=== PATIENT | male | born 1975 | race Caucasian/White ===

== ENCOUNTER 2017-01-27 12:36 | Emergency (ER) | payer MEDICAID ==
[2017-01-27] MEDS ORDERED: Ketorolac 60 MG/2 ML SDV IM ONE (13:01)
--- NOTE | 2017-01-27 13:07 | EDM.PDOC ---
ED HPI GENERAL MEDICAL PROBLEM - General Chief Complaint: Chest Pain Stated Complaint: CHEST PAIN Time Seen by Provider: 01/27/17 12:45 Source of Information: Reports: Patient History Limitations: Reports: No Limitations - History of Present Illness INITIAL COMMENTS - FREE TEXT/NARRATIVE: 41-year-old male, chronic anxiety and alcoholism had been sober for the past month but over the past 4 or 5 days he's been drinking daily but not heavily. He has not had anything to drink today, but he was walking down the driveway to get the garbage can when he experienced a very sharp sudden pain in the anterior left chest. It hurt to breathe but did not radiate. He got back into the house and sat down and it went away but when he tries to sit up he gets an increase in the sharp pain. He can also reproduce it with a deep breath. He does not feel short of breath. He had a stress test 2 years ago which was normal. After he experienced the pain he got on the Internet and realized he could be having a heart attack so came in. He appears anxious but comfortable. Initial EKG on arrival is normal. Onset: Sudden Location: Reports: Chest (Within the last hour) Quality: Reports: Sharp, Stabbing Severity: Moderate Improves with: Reports: Rest Worsens with: Reports: Breathing, Movement Associated Symptoms: Reports: No Other Symptoms Middle Chest Pain Score (Numeric/FACES): 6 - Related Data Allergies Allergy/AdvReac Type Severity Reaction Status Date / Time morphine Allergy Hives Verified 01/27/17 12:56 Home Meds: Home Meds Cyclobenzaprine [Flexeril] 5 mg PO TID 09/18/14 [History] Diazepam [Valium] 5 mg PO TID PRN 09/18/14 [History] traZODone 50 mg PO BEDTIME 09/18/14 [History] Atenolol 50 mg PO DAILY 11/04/14 [History] Diclofenac Sodium [Voltaren] 75 mg PO BID 11/04/14 [History] Lisinopril 10 mg PO DAILY 11/04/14 [History] Nicotine [Nicoderm CQ] 14 mg TRDERM DAILY 11/04/14 [History] buPROPion HCl [Wellbutrin SR] 150 mg PO BID 11/04/14 [History] ED ROS GENERAL - Review of Systems Review Of Systems: See Below Constitutional: Denies: Fever, Chills, Malaise HEENT: Reports: No Symptoms Respiratory: Reports: Pleuritic Chest Pain. Denies: Shortness of Breath Cardiovascular: Reports: Chest Pain. Denies: Palpitations GI/Abdominal: Denies: Abdominal Pain, Nausea, Vomiting : Reports: No Symptoms Skin: Reports: No Symptoms Neurological: Denies: Headache Psychiatric: Reports: Anxiety ED EXAM, GENERAL - Physical Exam Exam: See Below Exam Limited By: No Limitations General Appearance: Alert, Anxious Eye Exam: Bilateral Eye: Normal Inspection (Normal hydration, no jaundice) Respiratory/Chest: No Respiratory Distress, Lungs Clear. No: Chest Non-Tender ( I can reproduce some chest discomfort with palpation of the localized area on the lower left anterior chest) Cardiovascular: Regular Rate, Rhythm GI/Abdominal: Soft, Non-Tender Neurological: Alert, Oriented Psychiatric: Anxious Skin Exam: Warm, Dry EKG INTERPRETATION Rhythm: NSR Course - Vital Signs Last Recorded V/S: Last Vital Signs Temp 98.6 F 01/27/17 13:50 Pulse 72 01/27/17 13:50 Resp 17 01/27/17 13:50 BP 136/95 H 01/27/17 13:50 Pulse Ox 96 01/27/17 13:50 - Orders/Labs/Meds Orders: Active Orders 24 hr Category Date Time Status EKG Documentation Completion [RC] ASDIRECTED Care 01/27/17 13:01 Active EKG 12 Lead [EK] Routine Ther 01/27/17 13:01 Ordered Meds: Medications Discontinued Medications Generic Name Dose Route Start Last Admin Trade Name Lily PRN Reason Stop Dose Admin Ketorolac Tromethamine 60 mg 01/27/17 13:01 01/27/17 13:11 Toradol IM 01/27/17 13:02 60 mg ONETIME ONE Administration - Re-Assessments/Exams Free Text/Narrative Re-Assessment/Exam: 01/27/17 13:09 Patient was given 60 mg of Toradol IM and reassured that this is not cardiac pain. His stress test 2 years ago was normal. I encouraged him to stay hydrated with water and avoid alcohol for the next several days and he can use naproxen or ibuprofen as needed for pain. Return anytime if worsening or concerns, or consider rechecking early next week if not improving satisfactorily. Departure - Departure Time of Disposition: 13:53 Disposition: Home, Self-Care 01 Condition: Good Clinical Impression: Chest pain, musculoskeletal - Discharge Information Instructions: Nonspecific Chest Pain, [id number] Referrals: PCP,None [Primary Care Provider] - Forms: ED Department Discharge Care Plan Goals: Continue activity as tolerated, consider ibuprofen or naproxen for the next several days until pain resolves. Return anytime if worsening or concerns and drink lots of water and avoid alcohol. Consider rechecking early next week if not improving satisfactorily. - My Orders Last 24 Hours: My Active Orders 01/27/17 13:01 EKG Documentation Completion [RC] ASDIRECTED EKG 12 Lead [EK] Routine - Assessment/Plan Last 24 Hours: My Active Orders 01/27/17 13:01 EKG Documentation Completion [RC] ASDIRECTED EKG 12 Lead [EK] Routine
[2017-01-27 13:52] VITALS: BP 136/95
== END 2017-01-27 13:53 | disposition home or self-care (01) ==
LOC: JP.ED 12:36
DX: R07.89 Other chest pain (principal); Z79.899 Other long term (current) drug therapy; Z88.5 Allergy status to narcotic agent
CPT/HCPCS: 93005; 96372; 99285; J1885

== ENCOUNTER 2017-08-29 07:18 | Day surgery (SDC) | payer MEDICAID ==
[2017-08-29] MEDS ORDERED: Dextrose 5%-Lactated Ringers 1,000 ML IV SCH (08:15)
[2017-08-29] MEDS ORDERED: Glycopyrrolate 0.2 MG/ML 2 ML SDV IVPUSH ONE (08:30)
[2017-08-29] MEDS ORDERED: Midazolam 1 MG/ML 2 ML SDV ONE (08:52)
[2017-08-29] MEDS ORDERED: fentaNYL 100 MCG/2 ML SDV ONE (08:52)
[2017-08-29] MEDS ORDERED: Propofol 200 MG/20 ML SDV ONE (08:52)
[2017-08-29 11:31] VITALS: BP 137/95
--- NOTE | 2017-09-07 17:31 | OR ---
DATE OF PROCEDURE: 08/29/2017 PREOPERATIVE DIAGNOSIS: Probable gastroesophageal reflux disease. POSTOPERATIVE DIAGNOSES: 1. Gastroesophageal reflux disease refractory to medical management with small hiatal hernia and essentially wide open esophagogastric junction. 2. Mild antral gastritis. OPERATIVE PROCEDURE: Esophagogastroduodenoscopy with, 1. Biopsies of esophagogastric junction. 2. Biopsies of antrum for CLOtest. ANESTHESIA: IV sedation. INDICATIONS FOR THE PROCEDURE: This is a 42-year-old presenting with quite markedly symptomatic gastroesophageal reflux disease, refractory to medical management. Plan is to proceed with an upper GI endoscopy with biopsies as indicated. Potential risks including bleeding and perforation were discussed, and the patient wishes to proceed. DETAILS OF THE PROCEDURE: The patient was taken to the operating room and placed in a left lateral decubitus position. IV sedation was administered, after which the upper GI endoscope was passed orally through the length of the esophagus into the stomach with retroflexion view of the fundus, and thereafter through the pyloric channel into the proximal duodenum. Findings included normal hypopharynx, larynx, and upper esophageal sphincter. The esophageal body was likewise unremarkable. At the EG junction, there was a relatively small hiatal hernia but quite active gastroesophageal disease with the area being markedly reddened and friable. The EG junction on viewing from the distal esophagus was completely wide open, i.e., there was no function in terms of any angulation at that level. Within the stomach, there was some mild redness in the antrum, otherwise the visualized portion of the pyloric channel and duodenum were unremarkable. At this point, biopsies were obtained from the antrum and sent for CLOtest for H. pylori. Multiple biopsies were then sent for the histologic evaluation of the EG junction and no bleeding from the biopsy sites was seen and the procedure then concluded. The patient was taken to the recovery room in satisfactory condition. As discussed with the patient, he would be a good candidate for Latrice fundoplication. Preoperative evaluation from medical standpoint will be set up, given his degree of chest pain making sure there was no cardiac etiology and otherwise we will likely proceed thereafter with a Latrice fundoplication. Campbell Alejandre MD /[id number]
== END 2017-08-29 11:30 | disposition home or self-care (01) ==
LOC: JP.SDS 07:18
PROVIDERS: ATTEND Surgery
DX: K21.9 Gastro-esophageal reflux disease without esophagitis (principal); K44.9 Diaphragmatic hernia without obstruction or gangrene; K29.70 Gastritis, unspecified, without bleeding; F17.200 Nicotine dependence, unspecified, uncomplicated; I10 Essential (primary) hypertension; Z88.5 Allergy status to narcotic agent
CPT/HCPCS: 36415; 43239; 80053; 83735; 84100; 85027; 87081; 88305; J2250; J2704; J3010; J7042; J3490

== ENCOUNTER 2017-10-06 05:54 | Inpatient (IN) | payer MEDICAID ==
[2017-10-06] MEDS ORDERED: Acetaminophen 500 MG Tab PO ONE (06:00)
[2017-10-06] MEDS ORDERED: Celecoxib 200 MG Cap PO ONE (06:00)
[2017-10-06] MEDS ORDERED: Scopolamine 1.5 MG Transdermal Patch TRDERM SCH (06:00)
[2017-10-06] MEDS ORDERED: Dextrose 5%-Lactated Ringers 1,000 ML IV SCH (06:30)
[2017-10-06] MEDS ORDERED: Succinylcholine 200 MG/10 ML MDV ONE (07:02)
[2017-10-06] MEDS ORDERED: Neostigmine Methylsulfate 1 MG/ML 5 ML Syringe ONE (07:02)
[2017-10-06] MEDS ORDERED: Rocuronium 50 MG/5 ML Vial ONE ×2 (07:02→09:16)
[2017-10-06] MEDS ORDERED: Dexamethasone 4 MG/ML SDV ONE (07:02)
[2017-10-06] MEDS ORDERED: fentaNYL 250 MCG/5 ML SDV ONE ×2 (07:02→08:44)
[2017-10-06] MEDS ORDERED: Glycopyrrolate 0.2 MG/ML 5 ML MDV ONE (07:02)
[2017-10-06] MEDS ORDERED: Propofol 200 MG/20 ML SDV ONE (07:02)
[2017-10-06] MEDS ORDERED: Ondansetron 4 MG/2 ML SDV ONE (07:02)
[2017-10-06] MEDS ORDERED: Naloxone 0.4 MG/ML SDV IV PRN (07:27)
[2017-10-06] MEDS ORDERED: ceFAZolin 2 GM in Premix Bag 1 BAG IV ONE (08:15)
[2017-10-06] MEDS ORDERED: Phenylephrine 1% 10 MG/ML SDV ONE (09:26)
[2017-10-06] MEDS ORDERED: Lactated Ringers 1,000 ML ONE (09:46)
[2017-10-06] MEDS ORDERED: Ropivacaine 48 ML, Dexamethasone 8 MG, EPINEPHrine 0.4 MG, Sodium Chloride 0.9% 29.6 ML NERVRT SCH ×4 (10:00)
[2017-10-06] MEDS ORDERED: Ketamine 500 MG/5 ML MDV IV SCH (10:00)
[2017-10-06] MEDS ORDERED: Sugammadex Sodium 200 MG/2 ML VIAL ONE (10:04)
[2017-10-06] MEDS ORDERED: hydrOXYzine HCl 100 MG/2 ML SDV IM ONE ×2 (10:25→12:45)
[2017-10-06] MEDS: HYDROmorphone/Normal Saline 15 MG/30 ML PCA IV PRN ×2 (10:48→19:05)
[2017-10-06] MEDS ORDERED: Ondansetron 4 MG/2 ML SDV IVPUSH PRN (12:00)
[2017-10-06] MEDS ORDERED: HYDROmorphone 2 MG Tab PO PRN (12:00)
[2017-10-06] MEDS ORDERED: hydrOXYzine HCl 100 MG/2 ML SDV IM PRN (12:00)
[2017-10-06] MEDS ORDERED: SCOPOLAMINE PATCH CHECK TOP SCH (12:00)
[2017-10-06] MEDS ORDERED: Meperidine PF 100 MG/ML Syringe IM ONE (12:45)
[2017-10-06] MEDS ORDERED: LORazepam 2 MG/ML SDV IVPUSH PRN (13:41)
[2017-10-06] MEDS ORDERED: Pantoprazole 40 MG Vial IVPUSH SCH (14:00)
[2017-10-06] MEDS: Nicotine 14 MG/24 Hr Patch TRDERM SCH (14:03)
[2017-10-06] MEDS: Metoclopramide 10 MG/2 ML SDV IVPUSH SCH ×2 (14:04→20:53)
[2017-10-06] MEDS: Acetaminophen 500 MG Tab PO SCH ×2 (14:04→20:54)
[2017-10-06] MEDS: ceFAZolin 2 GM in Premix Bag 1 BAG IV SCH (16:38)
[2017-10-06] MEDS: Dextrose 5%-Lactated Ringers 1,000 ML IV SCH (22:05)
[2017-10-07] MEDS: ceFAZolin 2 GM in Premix Bag 1 BAG IV SCH ×2 (00:08→07:49)
[2017-10-07] MEDS: HYDROmorphone/Normal Saline 15 MG/30 ML PCA IV PRN (01:07)
[2017-10-07] MEDS: Acetaminophen 500 MG Tab PO SCH ×2 (01:13→08:30)
[2017-10-07] MEDS: Metoclopramide 10 MG/2 ML SDV IVPUSH SCH ×2 (01:15→08:29)
[2017-10-07] MEDS: Dextrose 5%-Lactated Ringers 1,000 ML IV SCH (05:10)
[2017-10-07 07:29] VITALS: BP 150/93
[2017-10-07] MEDS: Nicotine 14 MG/24 Hr Patch TRDERM SCH (08:30)
[2017-10-07] MEDS ORDERED: Lisinopril 10 MG Tab PO SCH (09:00)
--- NOTE | 2017-10-07 10:14 | DISCH ---
ADMISSION DIAGNOSES: 1. Gastroesophageal reflux disease refractory to medical management. 2. Raynaud syndrome. 3. Essential hypertension. 4. Generalized anxiety disorder. 5. Alcohol abuse. 6. Tobacco use disorder. 7. Elevated blood sugar. DISCHARGE DIAGNOSES: Diagnostic laparoscopy with Latrice fundoplication, repair of paraesophageal diaphragmatic hernia with mesh and needle liver biopsy for paraesophageal diaphragmatic hernia associated with gastroesophageal reflux disease refractory to medical management, hepatomegaly with fatty infiltration of liver. Date of surgery, 10/06/2017. HISTORY: Basil Kwon is a 42-year-old male with longstanding history of GERD refractory to medical management. After preoperative evaluation and discussion of possible risks and possible complications, he wished to proceed with surgical procedure. HOSPITAL COURSE: Basil had his surgery on 10/06/2017. He was able to be discharged on postop day #1. He received adequate dietary instruction. His activity was good, pain was well managed, and vital signs were stable. PHYSICAL EXAMINATION: GENERAL: Basil Kwon is a 42-year-old male. VITAL SIGNS: Height is 5 feet 11 inches. Weight is 204 pounds. TPR is 96, 84, 18, and blood pressure 150/93. HEENT: Negative. NECK: Supple. HEART: Regular rate and rhythm. LUNGS: Clear. ABDOMEN: Incisions look good. Abdominal binder is on. EXTREMITIES: Without peripheral edema. DISPOSITION: Discharged to home. CONDITION: Stable and improving. FOLLOWUP APPOINTMENT: Campbell Alejandre MD, at [facility] on 10/19/2017 at 9:30 a.m. DISCHARGE MEDICATIONS: Home medications; 1. Tylenol Extra Strength 1000 mg q.6 hours p.r.n. pain. 2. Dilaudid 2 mg 1 to 2 oral q.4 hours p.r.n. severe pain. He is to resume home medications of; 1. Maalox Advanced 15 mL every 4 hours p.r.n. heartburn. 2. Baclofen 10 mg oral 3 times a day. 3. Lisinopril 30 mg oral daily. 4. Naltrexone 50 mg oral daily. 5. Nicoderm CQ 14 mg topical daily, use as directed. 6. Protonix 40 mg oral daily. 7. Vistaril 25 to 50 mg oral 4 times daily. DISCHARGE DIET: 1. Drink 8 to 10 glasses of water a day. 2. Full-liquid diet for 2 weeks. See dietary instruction. ACTIVITY: As tolerated. No lifting over 10 pounds for 2 weeks[address] Driving, do not drive while on pain medication. Shower/bathing, may shower. Notify provider if any fever, increased pain, nausea, or vomiting. Wound incision care, keep site clean and dry. Wear abdominal binder for 2 weeks and then as tolerated. Special instruction, use incentive spirometer 10 times every hour while awake for 2 weeks.
--- NOTE | 2017-10-10 15:33 | OR ---
DATE OF PROCEDURE: 10/06/2017 PREOPERATIVE DIAGNOSIS: Gastroesophageal reflux disease refractory to medical management. POSTOPERATIVE DIAGNOSES: 1. Paraesophageal diaphragmatic hernia associated with gastroesophageal reflux disease refractory to medical management. 2. Hepatomegaly with gross fatty infiltration of the liver. OPERATIVE PROCEDURE: Diagnostic laparoscopy with: 1. Latrice fundoplication with concurrent repair of paraesophageal diaphragmatic hernia with mesh ([id number]). 2. Needle liver biopsy ([id number]). ANESTHESIA: General. ASSISTANTS: Magdalena Arthur PA-C, and AMANDA Taylor. INDICATION FOR PROCEDURE: This is a 42-year-old presenting with gastroesophageal reflux disease that has become refractory to medical management. Plan is to proceed with Latrice fundoplication. Potential risks of procedure including bleeding, infection, problems with fundoplication such as dysphagia, gas bloat syndrome, disorders of gastric emptying rate as well as incomplete relief of reflux symptoms immediately or chcf along with the more possibility of cardiopulmonary, septic, or hemorrhagic complications leading to and the patient wishes to proceed. DETAILS OF PROCEDURE: The patient was taken to the operating room and placed in a supine position. After general endotracheal anesthesia was induced, a Harley catheter was inserted and the patient was converted to a lithotomy position. The abdomen was then prepped and draped. At 15 cm inferior, 5 cm left of xiphoid process, transverse incision was made, and the peritoneal cavity was entered under direct vision with Optiview trocar inflated to 15 mmHg pressure with CO2. Laparoscope was then reinserted. No underlying trocar insertion site injuries were seen. With it visualization of the needle tip in the correct location. Bilateral subcostal transverse abdominis plane blocks were placed and 4 additional 5 mm trocars were placed across the upper mid abdomen. The liver was noted to be quite fatty infiltrated and enlarged. The patient does have a history of alcohol use and also noted to have some elevation of liver function tests. Given all of this, Rafa-Cut needle biopsies were obtained x2 from the left lobe of the liver. Minimal bleeding from the biopsy site was controlled with electrocautery. The liver was then retracted anteriorly and the patient was noted to have significant paraesophageal diaphragmatic hernia with prolapse of gastric fundus, perigastric fat as well as a tongue of omentum into the plane anterior course of the esophagus. These areas were then reduced and the peritoneum overlying was divided and reflected downward. The peritoneum along the distal esophagus on each side was then also divided and the esophagus was from the adjacent crura. The retroesophageal window was then constructed with a Ajo drain around the distal esophagus. Further attachments to the distal esophagus were divided with Harmonic Scalpel. Once 4 to 5 cm segment of intraabdominal esophagus was accomplished, attention was taken to the crural repair. There is quite a bit of splaying of the crura as one would expect, and the posterior crural repair was accomplished with some 0 Vicryl. Sutures reinforced with PTFE pledgets. Because of the relatively large amount of splaying of the crura prior to the crural closure, a segment of Phasix ST mesh was used. This was with crural repair and slightly onto the area lateral to that. This was oriented such that the Seprafilm side of the mesh would face the esophagus and fixed and positioned with some titanium tacking screws. At this point, the upper greater curvature of the stomach was divided from the omentum with Harmonic Scalpel. This allowed dissection to continue upward and dividing the short gastric vessels including the highest and posterior short gastric vessels. This resulted in a nicely mobile of the gastric fundus. The physiotherapist's assistant placed guidewire orally through the length of the esophagus into the stomach. Over this, a 54-Amharic Savary dilator was placed. A 2 cm 3 stitch fundoplication was then accomplished with 0 Ethibond sutures reinforced with PTFE pledgets. Each of the sutures included bites of the underlying esophagus to help fix in position. Two sutures between the fundoplication, one on the left and one on the right side through the overlying diaphragm was then also placed with the same stitch pledget combination to minimize chances of the Latrice fundoplication slipping downward onto the stomach. The dilator and wire were then removed. The area of dissection was inspected. No bleeding or other problems were noted. The fundoplication was inspected and found to be satisfactorily mobile and at that point, the trocars were sequentially removed. The fascia at the 12 mm site was closed with 0 Vicryl stitch and the skin at each incision with a 4-0 Vicryl skin stitch. Dressing was applied. The patient was taken to the recovery room in satisfactory condition. Physician physiotherapist's assistant, Magdalena Arthur, played an essential role in assisting in this case, helping to position the patient, retract structures as needed, as well as suturing and cutting sutures when indicated. Her presence improved the patient's safety and decreased operative time. Campbell Alejandre MD /[id number]
== END 2017-10-07 09:50 | disposition home or self-care (01) | DRG 328 ==
LOC: JP.SDS 05:54 → JP.SDSSCHI 05:54 → EDSTATUS 07:30 → JP.MS 10:00
PROVIDERS: ADMIT Surgery; ATTEND Surgery
PROC: 0DV44ZZ Restriction of Esophagogastric Junction, Percutaneous Endoscopic Approach (ICD-10-PCS; principal; 2017-10-06)
PROC: 0BUT4JZ Supplement Diaphragm with Synthetic Substitute, Percutaneous Endoscopic Approach (ICD-10-PCS; 2017-10-06)
PROC: 0FB23ZX Excision of Left Lobe Liver, Percutaneous Approach, Diagnostic (ICD-10-PCS; 2017-10-06)
DX: K21.9 Gastro-esophageal reflux disease without esophagitis (principal); K44.9 Diaphragmatic hernia without obstruction or gangrene; K70.0 Alcoholic fatty liver; I10 Essential (primary) hypertension; I73.00 Raynaud's syndrome without gangrene; F41.1 Generalized anxiety disorder; F10.10 Alcohol abuse, uncomplicated; F17.210 Nicotine dependence, cigarettes, uncomplicated; Z79.899 Other long term (current) drug therapy
CPT/HCPCS: 36415; 80048; 80076; 83735; 84100; 85027; 88307; 88313; 94762; A9270-GY; C1781; C9113; C9399; J0171; J0330; J0690; J1100; J1170; J2175; J2370; J2405; J2704; J2710; J2765; J2795; J3010; J3410; J7042; J7050; J7120

== ENCOUNTER 2017-10-08 06:42 | Emergency (ER) | payer MEDICAID ==
[2017-10-08] MEDS ORDERED: fentaNYL 100 MCG/2 ML SDV IM ONE (07:35)
--- NOTE | 2017-10-08 07:42 | EDM.PDOC ---
ED HPI GENERAL MEDICAL PROBLEM - General Chief Complaint: Abdominal Pain Stated Complaint: POST OP PAIN Time Seen by Provider: 10/08/17 07:20 Source of Information: Reports: Patient, Old Records, RN Notes Reviewed History Limitations: Reports: No Limitations - History of Present Illness INITIAL COMMENTS - FREE TEXT/NARRATIVE: 42-year-old gentleman presents to the emergency department with complaint of abdominal pain, he is postop day 2 from a Latrice fundoplication. States when he is discharged on hospital felt pretty good unfortunately the pain has progressively gotten worse. He does have Dilaudid at home which is not providing any pain relief, he denies any nausea or vomiting no fevers, states it hurts to take a deep breath, describes the pain is starting in his epigastric region and radiating up into his right side of his chest Upper Abdomen Pain Score (Numeric/FACES): 9 - Related Data Allergies Allergy/AdvReac Type Severity Reaction Status Date / Time morphine Allergy Hives Verified 10/08/17 07:31 Home Meds: Home Meds Lisinopril 30 mg PO DAILY 11/04/14 [History] Alum Hydrox/Mag Hydrox/Simeth [Maalox Advanced] 15 ml PO Q4H PRN 08/25/17 [ History] Baclofen 10 mg PO TID 08/25/17 [History] Pantoprazole Sodium [Protonix] 40 mg PO DAILY 08/25/17 [History] hydrOXYzine Pamoate [Vistaril] 25 - 50 mg PO QID PRN 08/25/17 [History] Nicotine [Nicoderm CQ] 14 mg TOP DAILY 10/04/17 [History] Naltrexone 50 mg PO DAILY 10/06/17 [History] Acetaminophen [Tylenol Extra Strength] 1,000 mg PO Q6H tablet 10/07/17 [Rx] HYDROmorphone [Dilaudid] 2 - 4 mg PO Q4H PRN #40 tablet 10/07/17 [Rx] Past Medical History Cardiovascular History: Reports: Hypertension Gastrointestinal History: Reports: GERD, Hemorrhoids Musculoskeletal History: Reports: Back Pain, Chronic - Infectious Disease History Infectious Disease History: Reports: Chicken Pox - Past Surgical History Head Surgeries/Procedures: Reports: None HEENT Surgical History: Reports: Oral Surgery Cardiovascular Surgical History: Reports: None Respiratory Surgical History: Reports: None GI Surgical History: Reports: Latrice Fundoplication Endocrine Surgical History: Reports: None Neurological Surgical History: Reports: Discectomy Musculoskeletal Surgical History: Reports: None Other Musculoskeletal Surgeries/Procedures:: L4-L5 DISCECTOMY, CHRONIC R LUMBAR PAIN THTA RADIATES TO R LEG Oncologic Surgical History: Reports: None Dermatological Surgical History: Reports: None Social & Family History - Family History Family Medical History: Noncontributory - Tobacco Use Smoking Status *Q: Former Smoker Used Tobacco, but Quit: Yes Month/Year Tobacco Last Used: october 03 2017 - Caffeine Use Caffeine Use: Reports: None - Recreational Drug Use Recreational Drug Use: No ED ROS GENERAL - Review of Systems Review Of Systems: See Below Constitutional: Denies: Fever, Chills HEENT: Reports: No Symptoms Respiratory: Reports: No Symptoms Cardiovascular: Reports: Other (Pain with a deep breath) GI/Abdominal: Reports: Abdominal Pain, Flatus. Denies: Nausea, Vomiting : Reports: No Symptoms Musculoskeletal: Reports: No Symptoms Skin: Reports: No Symptoms Neurological: Reports: No Symptoms ED EXAM, GI/ABD - Physical Exam Exam: See Below Exam Limited By: No Limitations General Appearance: Alert, Mild Distress Neck: Normal Inspection, Supple, Non-Tender, Full Range of Motion Respiratory/Chest: No Respiratory Distress, Lungs Clear, Normal Breath Sounds, No Accessory Muscle Use, Chest Non-Tender Cardiovascular: Regular Rate, Rhythm, No Murmur GI/Abdominal Exam: Normal Bowel Sounds, Soft, Tender (Epigastric region) Course - Vital Signs Last Recorded V/S: Last Vital Signs Temp 96.0 F 10/08/17 07:10 Pulse 68 10/08/17 08:22 Resp 18 10/08/17 08:22 BP 153/111 H 10/08/17 08:22 Pulse Ox 98 10/08/17 08:22 - Orders/Labs/Meds Orders: Active Orders 24 hr Category Date Time Status Abdomen 1V Upright [CR] Urgent Exams 10/08/17 07:34 Taken Labs: Laboratory Tests 10/08/17 10/08/17 10/08/17 Range/Units 07:30 07:30 07:30 WBC 8.1 (4.5-11.0) K/uL RBC 4.05 L (4.30-5.90) M/uL Hgb 13.9 D (12.0-15.0) g/dL Hct 41.6 (40.0-54.0) % MCV 103 H (80-98) fL MCH 34 H (27-31) pg MCHC 33 (32-36) % Plt Count 206 (150-400) K/uL Neut % (Auto) 57 (36-66) % Lymph % (Auto) 31 (24-44) % [place] % (Auto) 11 H (2-6) % Eos % (Auto) 1 L (2-4) % Baso % (Auto) 0 (0-1) % Sodium 137 L (140-148) mmol/L Potassium 4.0 (3.6-5.2) mmol/L Chloride 103 (100-108) mmol/L Carbon Dioxide 24 (21-32) mmol/L Anion Gap 14.0 (5.0-14.0) mmol/L BUN 8 (7-18) mg/dL Creatinine 0.9 (0.8-1.3) mg/dL Est Cr Clr Drug Dosing 115.04 mL/min Estimated GFR (MDRD) > 60 (>60) Glucose 91 (74-106) mg/dL Lactic Acid 0.8 (0.4-2.0) mmol/L Calcium 8.6 (8.5-10.1) mg/dL Total Bilirubin 0.8 (0.2-1.0) mg/dL AST 46 H (15-37) U/L ALT 103 H (12-78) U/L Alkaline Phosphatase 50 (46-116) U/L Troponin I < 0.017 (0.000-0.056) ng/mL Total Protein 6.8 (6.4-8.2) g/dL Albumin 3.4 (3.4-5.0) g/dL Globulin 3.4 (2.3-3.5) g/dL Albumin/Globulin Ratio 1.0 L (1.2-2.2) Meds: Medications Discontinued Medications Generic Name Dose Route Start Last Admin Trade Name Freq PRN Reason Stop Dose Admin Fentanyl 100 mcg 10/08/17 07:35 10/08/17 07:43 Sublimaze IM 10/08/17 07:36 100 mcg ONETIME ONE Administration Departure - Departure Time of Disposition: 08:59 Disposition: Home, Self-Care 01 Condition: Good Clinical Impression: Postoperative pain - Discharge Information Referrals: PCP,None [Primary Care Provider] - Forms: ED Department Discharge Additional Instructions: Use Percocet as needed to control pain, please keep your follow-up appointment with Dr. Alejandre, call or return to the emergency department with worsening of symptoms - My Orders Last 24 Hours: My Active Orders 10/08/17 07:34 Abdomen 1V Upright [CR] Urgent - Assessment/Plan Last 24 Hours: My Active Orders 10/08/17 07:34 Abdomen 1V Upright [CR] Urgent Plan: Assessment Acuity = acute Site and laterality = post op abdominal pain Etiology = secondary to inadequate pain control Manifestations = none Location of injury = Home Lab values = CBC, CMP unremarkable plain film of the abdomen I did review films myself I cannot appreciate any acute process, the official read from radiology is pending Plan He had good relief from the fentanyl provided, called discussed case with Dr. Alejandre general surgery plan is to stop his Dilaudid change pain medication to Percocet 5/325 one tablet by mouth 3 times a day when necessary total #30 provided he does have a follow-up appointment with Dr. Alejandre in 10 days This note was dictated using [id number] voice recognition software please call with any questions on syntax or grammar.
[2017-10-08 08:23] VITALS: BP 153/111
--- NOTE | 2017-10-10 08:50 | CR ---
Abdomen 1V Upright CLINICAL HISTORY: Abdominal pain, postop FINDINGS: There is free air in the right hemidiaphragm. This is likely related to recent surgery. The bowel gas pattern is nonobstructive. No abnormal masses are noted. No stones are seen IMPRESSION: Postoperative free intraperitoneal air Nonacute intestinal gas pattern
== END 2017-10-08 09:14 | disposition home or self-care (01) ==
LOC: JP.ED 06:42
DX: G89.18 Other acute postprocedural pain (principal); R10.10 Upper abdominal pain, unspecified; I10 Essential (primary) hypertension; K21.9 Gastro-esophageal reflux disease without esophagitis; Z87.891 Personal history of nicotine dependence; Z79.899 Other long term (current) drug therapy; Z88.5 Allergy status to narcotic agent; Z98.890 Other specified postprocedural states
CPT/HCPCS: 36415; 74018; 80053; 83605; 84484; 85025; 96372; 99284; J3010

== ENCOUNTER 2018-01-01 19:55 | Observation (INO) | payer MEDICAID ==
[2018-01-01] MEDS ORDERED: Lactated Ringers 1,000 ML IV ONE (20:45)
[2018-01-01] MEDS ORDERED: Sodium Chloride 0.9% 10 ML Syringe FLUSH PRN (20:45)
--- NOTE | 2018-01-01 20:52 | EDM.PDOC ---
ED HPI GENERAL MEDICAL PROBLEM - General Chief Complaint: Abdominal Pain Stated Complaint: STOMACH PAIN Time Seen by Provider: 01/01/18 20:25 Source of Information: Reports: Patient, Family, Old Records, RN Notes Reviewed History Limitations: Reports: No Limitations - History of Present Illness INITIAL COMMENTS - FREE TEXT/NARRATIVE: 42-year-old gentleman presents to the emergency department today with complaint of abdominal pain, he has a history of a Latrice fundoplication which he underwent about 3 months prior he states over the last month he has had progressive epigastric pain particularly with swallowing solid foods. He has no difficulty with liquids. But he describes solid foods is similar to swallowing a cactus, Denies any nausea, vomiting, fevers, shortness of breath, chest pain , or GI symptomatology. - Related Data Allergies Allergy/AdvReac Type Severity Reaction Status Date / Time morphine Allergy Hives Verified 01/01/18 20:09 Home Meds: Home Meds Lisinopril 30 mg PO DAILY 11/04/14 [History] Baclofen 10 mg PO TID 08/25/17 [History] Pantoprazole Sodium [Protonix] 40 mg PO DAILY 08/25/17 [History] Nicotine [Nicoderm CQ] 14 mg TOP DAILY 10/04/17 [History] Past Medical History Cardiovascular History: Reports: Hypertension Gastrointestinal History: Reports: GERD, Hemorrhoids Genitourinary History: Reports: None Musculoskeletal History: Reports: Back Pain, Chronic Psychiatric History: Reports: None Hematologic History: Reports: None Immunologic History: Reports: None - Infectious Disease History Infectious Disease History: Reports: Chicken Pox - Past Surgical History Head Surgeries/Procedures: Reports: None Cardiovascular Surgical History: Reports: None GI Surgical History: Reports: Latrice Fundoplication Musculoskeletal Surgical History: Reports: None Other Musculoskeletal Surgeries/Procedures:: L4-L5 DISCECTOMY, CHRONIC R LUMBAR PAIN THTA RADIATES TO R LEG Social & Family History - Family History Family Medical History: Noncontributory - Tobacco Use Smoking Status *Q: Never Smoker - Caffeine Use Caffeine Use: Reports: None - Alcohol Use Days Per Week of Alcohol Use: 7 Number of Drinks Per Day: 4 Total Drinks Per Week: 28 - Recreational Drug Use Recreational Drug Use: No ED ROS GENERAL - Review of Systems Review Of Systems: See Below Constitutional: Reports: No Symptoms HEENT: Reports: No Symptoms Respiratory: Reports: No Symptoms Cardiovascular: Reports: No Symptoms GI/Abdominal: Reports: Abdominal Pain. Denies: Nausea, Vomiting ED EXAM, GI/ABD - Physical Exam Exam: See Below Exam Limited By: No Limitations General Appearance: Alert, WD/WN, No Apparent Distress Respiratory/Chest: No Respiratory Distress GI/Abdominal Exam: Soft, Tender Course - Vital Signs Last Recorded V/S: Last Vital Signs Temp 97.9 F 01/01/18 20:18 Pulse 95 01/01/18 20:18 Resp 14 01/01/18 20:18 BP 144/103 H 01/01/18 20:18 Pulse Ox 98 01/01/18 20:18 - Orders/Labs/Meds Orders: Active Orders 24 hr Category Date Time Status Peripheral IV Care [RC] . DIRECTED Care 01/01/18 20:46 Ordered CBC WITH AUTO DIFF [HEME] Stat Lab 01/01/18 20:45 Ordered COMPREHENSIVE METABOLIC PN,CMP [CHEM] Stat Lab 01/01/18 20:45 Ordered LIPASE [CHEM] Stat Lab 01/01/18 20:45 Ordered Lactated Ringers [Ringers, Lactated] 1,000 ml Med 01/01/18 20:45 Ordered IV BOLUS Sodium Chloride 0.9% [Saline Flush] Med 01/01/18 20:45 Ordered 10 ml FLUSH ASDIRECTED PRN Peripheral IV Insertion Adult [OM.PC] Urgent Oth 01/01/18 20:45 Ordered Departure - Departure Time of Disposition: 20:52 Disposition: Admitted As Inpatient 66 Condition: Good Clinical Impression: Epigastric pain - Discharge Information Referrals: PCP,None [Primary Care Provider] - - My Orders Last 24 Hours: My Active Orders 01/01/18 20:45 CBC WITH AUTO DIFF [HEME] Stat COMPREHENSIVE METABOLIC PN,CMP [CHEM] Stat LIPASE [CHEM] Stat Lactated Ringers [Ringers, Lactated] 1,000 ml IV BOLUS Sodium Chloride 0.9% [Saline Flush] 10 ml FLUSH ASDIRECTED PRN Peripheral IV Insertion Adult [OM.PC] Urgent 01/01/18 20:46 Peripheral IV Care [RC] . DIRECTED - Assessment/Plan Last 24 Hours: My Active Orders 01/01/18 20:45 CBC WITH AUTO DIFF [HEME] Stat COMPREHENSIVE METABOLIC PN,CMP [CHEM] Stat LIPASE [CHEM] Stat Lactated Ringers [Ringers, Lactated] 1,000 ml IV BOLUS Sodium Chloride 0.9% [Saline Flush] 10 ml FLUSH ASDIRECTED PRN Peripheral IV Insertion Adult [OM.PC] Urgent 01/01/18 20:46 Peripheral IV Care [RC] . DIRECTED Plan: Assessment Acuity = acute Site and laterality = epigastric pain Etiology = probably related to recent Latrice fundoplication Manifestations =none Location of injury = Home Lab values = lab work is pending Plan Called discussed case with Dr. Alejandre general surgery he agreed to admit the patient plan for EGD with dilation in the morning This note was dictated using [employer] voice recognition software please call with any questions on syntax or grammar.
[2018-01-01] MEDS ORDERED: Ondansetron 4 MG/2 ML SDV IV PRN (20:53)
[2018-01-01] MEDS ORDERED: HYDROmorphone 0.5 MG/0.5 ML Syringe ONE (21:07)
[2018-01-01] MEDS: HYDROmorphone 0.5 MG/0.5 ML Syringe IVPUSH PRN ×2 (21:14→23:18)
[2018-01-01] MEDS ORDERED: BRANDY PO PRN (22:30)
[2018-01-01] MEDS: Baclofen 10 MG Tab PO SCH (23:18)
[2018-01-01] MEDS: Lactated Ringers 1,000 ML IV SCH (23:19)
[2018-01-02] MEDS: [UNRECOGNIZED DRUG - OTHER] PO PRN ×2 (00:55)
[2018-01-02] MEDS ORDERED: diphenhydrAMINE 50 MG/ML SDV IVPUSH PRN (00:57)
[2018-01-02] MEDS: Lactated Ringers 1,000 ML IV SCH (07:21)
[2018-01-02] MEDS ORDERED: Pantoprazole 40 MG Tab.CR PO SCH (07:30)
[2018-01-02] MEDS ORDERED: fentaNYL 100 MCG/2 ML SDV ONE (08:46)
[2018-01-02] MEDS ORDERED: Propofol 200 MG/20 ML SDV ONE (08:46)
[2018-01-02] MEDS ORDERED: Midazolam 1 MG/ML 2 ML SDV ONE (08:46)
[2018-01-02] MEDS ORDERED: Lisinopril 10 MG Tab PO SCH (09:00)
[2018-01-02] MEDS ORDERED: Nicotine 14 MG/24 Hr Patch TOP SCH (09:00)
[2018-01-02] MEDS: Baclofen 10 MG Tab PO SCH (09:58)
[2018-01-02] MEDS: Fluconazole/Normal Saline 200 MG in Premix Bag 1 BAG IV SCH ×2 (10:30→11:43)
[2018-01-02 11:42] VITALS: BP 119/76
--- NOTE | 2018-01-02 12:19 | OR ---
DATE OF PROCEDURE: 01/02/2018 PREOPERATIVE DIAGNOSES: Dysphagia and pain referable to distal esophagus. POSTOPERATIVE DIAGNOSES: 1. Fungal overgrowth of distal esophagus. 2. Intact Latrice fundoplication with minimal inflammation at EG junction. 3. [id number] antral gastritis. OPERATIVE PROCEDURES: Upper GI endoscopy with; 1. Biopsies of antrum for CLOtest. 2. Dilation of esophagus with a 54-[place] Savary dilator. INDICATION FOR PROCEDURE: Please see notes dated 01/01/2018 and 01/02/2018. Potential risks including bleeding and perforation were reviewed, and the patient wishes to proceed. DETAILS OF PROCEDURE: The patient was taken to the operating room and after being placed in a left lateral decubitus position, had some IV sedation administered. The upper GI endoscope was then passed orally through the length of the esophagus and into the stomach with retroflexion view of the fundus, and thereafter through the pyloric channel and into the proximal duodenum. Findings included normal hypopharynx, larynx, and upper esophageal sphincter. Within the esophageal body, there was diffuse fungal overgrowth present. This was not associated with much in the way of mucosal inflammation. The patient did have an intact Latrice effect with no stricturing and no gross inflammation at the level of esophagogastric junction. Within the stomach, there was some mild redness in the antrum, otherwise was unremarkable. The pyloric channel and duodenum to the junction of the third and fourth portions were unremarkable. At this point, biopsies were obtained from the antrum and sent for CLOtest for H. pylori. Following this, guidewire was placed into the stomach and after removal of the scope, a 54-[place] Savary dilator was placed and held in position for 30 seconds. The dilator and wire were then removed and the procedure concluded. The patient was taken to the recovery room in a satisfactory condition. Campbell Alejandre MD /[id number]
--- NOTE | 2018-01-02 13:46 | DISCH ---
FINAL DIAGNOSES: 1. Pain and dysphagia referable to distal esophagus. 2. Status post Latrice fundoplication. 3. History of hypertension. 4. History of nicotine addiction. 5. Alcoholism, active. 6. Fungal overgrowth within esophagus. OPERATIVE PROCEDURES: Upper GI endoscopy with; 1. Biopsies of antrum for CLOtest. 2. Dilation of esophagus that was done on 01/02/2018. HOSPITAL COURSE: This is a 42-year-old presenting with some increasing dysphagia and pain referable to distal esophagus. He is status post Latrice fundoplication in September and had been, up until recently, doing quite well. The patient was admitted overnight for hydration and underwent an upper endoscopy this morning, which showed a fungal overgrowth within the esophagus. The patient had an intact Latrice with no gross inflammation at the EG junction. There was some [id number] gastritis in the antrum without erosions or ulcers. Biopsies were obtained from the antrum and sent for CLOtest, and the patient empirically dilated with a Savary dilator 54-Bulgarian in size. The plan will be to have the patient begin a full liquid diet and assuming he tolerates that, he will be discharged home later today. We will have him continue the full liquid diet x3 days and then advance to solids as tolerated. DISCHARGE MEDICATIONS: Medications will include Mycostatin swish and swallow 5 mL q.i.d. x5 days. The patient will be receiving 400 mg of Diflucan IV prior to discharge as well. Then, he will also be sent home with 2 bottles of viscous Xylocaine 2 ounces with 12 ounces of Mylanta, to take 1 or 2 tablespoons before meals. Otherwise, he will be continued on his usual home medications. FOLLOWUP: With Dr. Alejandre at [facility] on 01/11/2018.
== END 2018-01-02 13:01 | disposition home or self-care (01) ==
LOC: JP.ED 19:55 → JP.MS 20:53
PROVIDERS: ADMIT Surgery; ATTEND Surgery
DX: K29.50 Unspecified chronic gastritis without bleeding (principal); I10 Essential (primary) hypertension; K21.9 Gastro-esophageal reflux disease without esophagitis; Z88.5 Allergy status to narcotic agent
CPT/HCPCS: 36415; 43239; 43248; 80053; 83690; 85025; 87081; 99285; A9270; J1170; J1200; J1450; J2250; J2405; J2704; J3010; J7050; J7120

== ENCOUNTER 2019-09-16 15:22 | Emergency (ER) | payer MEDICAID ==
[2019-09-16 15:38] VITALS: BP 152/111; PULSE 93
--- NOTE | 2019-09-16 15:42 | EDM.PDOCBH ---
ED HPI GENERAL MEDICAL PROBLEM - General Chief Complaint: Drug or Alcohol Abuse Stated Complaint: EVAL, wants medication to stop "the shakes", Time Seen by Provider: 09/16/19 15:50 Source of Information: Reports: Patient History Limitations: Reports: No Limitations - History of Present Illness INITIAL COMMENTS - FREE TEXT/NARRATIVE: Patient states he does not want to go to detox. He would like some medication to help him with shakes for the next couple days. He is planning on no more alcohol. He states quite silly that he has a problem with alcohol and he realizes it. Separately he also has trouble swallowing and has a history of GERD and Latrice fundoplication. He states that eating small amounts of food basically stops partway down and gags him. He has had a dilation of his lower gastroesophageal sphincter in the past and he feels he needs this again. Onset: Gradual Improves with: Reports: Medication, Other (Past has utilized Valium to help with the shakes) Associated Symptoms: Reports: Loss of Appetite, Malaise. Denies: Fever/Chills, Rash Bilateral Hip Pain Score (Numeric/FACES): 4 - Related Data Allergies Allergy/AdvReac Type Severity Reaction Status Date / Time morphine Allergy Hives Verified 09/16/19 15:37 Home Meds: Home Meds Lisinopril 30 mg PO DAILY 11/04/14 [History] Pantoprazole Sodium [Protonix] 40 mg PO DAILY 08/25/17 [History] Past Medical History - Past Health History Medical/Surgical History: Denies Medical/Surgical History Cardiovascular History: Reports: Hypertension Gastrointestinal History: Reports: GERD, Hemorrhoids, Other (See Below) ( Patient states he has had no history of peptic ulcer disease or upper GI bleeding due to alcohol. Denies any history of liver disease related to alcohol ). Denies: Cirrhosis, Hepatitis Genitourinary History: Reports: None Musculoskeletal History: Reports: Back Pain, Chronic Neurological History: Reports: Other (See Below) (No history of withdrawal seizures) Psychiatric History: Reports: None Hematologic History: Reports: None Immunologic History: Reports: None - Infectious Disease History Infectious Disease History: Reports: Chicken Pox - Past Surgical History Head Surgeries/Procedures: Reports: None Cardiovascular Surgical History: Reports: None GI Surgical History: Reports: Latrice Fundoplication Musculoskeletal Surgical History: Reports: None Other Musculoskeletal Surgeries/Procedures:: L4-L5 DISCECTOMY, CHRONIC R LUMBAR PAIN THTA RADIATES TO R LEG Social & Family History - Family History Family Medical History: Noncontributory - Caffeine Use Caffeine Use: Reports: None - Alcohol Use Alcohol Use History: Yes ED ROS GENERAL - Review of Systems Review Of Systems: See Below Constitutional: Reports: Malaise, Decreased Appetite HEENT: Reports: No Symptoms Respiratory: Reports: No Symptoms Cardiovascular: Reports: No Symptoms GI/Abdominal: Reports: Difficulty Swallowing, Nausea. Denies: Hematemesis Musculoskeletal: Reports: No Symptoms Neurological: Reports: Tremors ED EXAM, BEHAVIORAL HEALTH - Physical Exam Exam: See Below Exam Limited By: No Limitations General Appearance: Alert Eye Exam: Bilateral Eye: EOMI, PERRL, Other (No scleral icterus) Ears: Normal External Exam Throat/Mouth: Normal Inspection, Other (Mucous membranes moist) Head: Atraumatic, Normocephalic Neck: Normal Inspection, Non-Tender Respiratory/Chest: No Respiratory Distress, Normal Breath Sounds Cardiovascular: Normal Peripheral Pulses, No Murmur GI/Abdominal: Soft, Non-Tender Extremities: Normal Inspection, Other (Definite slight tremor with extension of his arms out in front of him. No pronator drift) Neurological: Alert, Normal Mood/Affect, Normal Cognition, No Motor/Sensory Deficits, Oriented x 3 Psychiatric: Alert, Normal Affect. No: Visual Hallucinations Skin Exam: Warm, Dry COURSE, BEHAVIORAL HEALTH COMP - Course Vital Signs: Last Vital Signs Temp 36.4 C 09/16/19 15:38 Pulse 93 09/16/19 15:38 Resp 16 09/16/19 15:38 BP 152/111 H 09/16/19 15:38 Pulse Ox 98 09/16/19 15:38 Departure - Departure Time of Disposition: 16:04 Disposition: Home, Self-Care 01 Condition: Good Clinical Impression: History of alcohol abuse Alcohol withdrawal syndrome Qualifiers: Complication of substance-induced condition: uncomplicated Qualified Code(s): F10.230 - Alcohol dependence with withdrawal, uncomplicated - Discharge Information Instructions: Alcohol Use Disorder, Delirium Tremens, [id number] Referrals: Renetta Sawyer DO [Primary Care Provider] - Forms: ED Department Discharge Additional Instructions: Utilize Ativan as prescribed 1 every 6 hours for the next 3 days to help with tremors. Not combine the Ativan with alcohol. CAll the clinic regarding making an appointment w/surgeon for dilation of your esophagus Sepsis Event Note - Focused Exam Vital Signs: Vital Signs Temp Pulse Resp BP Pulse Ox 09/16/19 15:38 36.4 C 93 16 152/111 H 98 09/16/19 15:36 36.4 C 93 16 152/111 H 98 Date Exam was Performed: 09/16/19 Time Exam was Performed: 15:58
[2019-09-16] MEDS ORDERED: LORazepam 1 MG Tab PO ONE (16:10)
== END 2019-09-16 16:20 | disposition home or self-care (01) ==
LOC: JP.ED 15:22
DX: F10.230 Alcohol dependence with withdrawal, uncomplicated (principal); I10 Essential (primary) hypertension; K21.9 Gastro-esophageal reflux disease without esophagitis; Z79.899 Other long term (current) drug therapy; Z88.5 Allergy status to narcotic agent
CPT/HCPCS: 99283; A9270

== ENCOUNTER 2019-10-23 00:04 | Emergency (ER) | payer MEDICAID ==
--- NOTE | 2019-10-23 01:01 | EDM.PDOC ---
ED HPI GENERAL MEDICAL PROBLEM - General Chief Complaint: Laceration Stated Complaint: FELL OF DECK HEAD INJURY Time Seen by Provider: 10/23/19 00:57 Source of Information: Reports: Patient, Old Records History Limitations: Reports: No Limitations - History of Present Illness INITIAL COMMENTS - FREE TEXT/NARRATIVE: 44 yo male here after a fall off a deck from the railing breaking. He incurred a forehead laceration. No LOC or neck pain. No extremity injuries. No ROJAS. Is refusing a tetanus booster. Onset: Today Onset Date: 10/23/19 Onset Time: 00:00 Duration: Minutes:, Constant Location: Reports: Face Quality: Reports: Dull Severity: Mild Improves with: Reports: None Worsens with: Reports: None Context: Reports: Trauma Associated Symptoms: Reports: No Other Symptoms Treatments DIRECTOR TALENT: Reports: Other (see below) (none) laceration Pain Score (Numeric/FACES): 4 - Related Data Allergies Allergy/AdvReac Type Severity Reaction Status Date / Time morphine Allergy Hives Verified 10/23/19 00:37 Home Meds: Home Meds Lisinopril 30 mg PO DAILY 11/04/14 [History] Pantoprazole Sodium [Protonix] 40 mg PO DAILY 08/25/17 [History] traZODone 100 mg PO BEDTIME 10/23/19 [History] Past Medical History - Past Health History Medical/Surgical History: Denies Medical/Surgical History Cardiovascular History: Reports: Hypertension Gastrointestinal History: Reports: GERD, Hemorrhoids Genitourinary History: Reports: None Musculoskeletal History: Reports: Back Pain, Chronic Other Musculoskeletal History: chronic hip pain Neurological History: Reports: Other (See Below) (No history of withdrawal seizures) Psychiatric History: Reports: None Hematologic History: Reports: None Immunologic History: Reports: None - Infectious Disease History Infectious Disease History: Reports: Chicken Pox - Past Surgical History Head Surgeries/Procedures: Reports: None Cardiovascular Surgical History: Reports: None GI Surgical History: Reports: Latrice Fundoplication Neurological Surgical History: Reports: Lumbar Spine Musculoskeletal Surgical History: Reports: None, Hip Replacement Other Musculoskeletal Surgeries/Procedures:: L4-L5 DISCECTOMY, CHRONIC R LUMBAR PAIN THTA RADIATES TO R LEG Dermatological Surgical History: Reports: None Social & Family History - Family History Family Medical History: Noncontributory - Tobacco Use Smoking Status *Q: Current Every Day Smoker Years of Tobacco use: 25 Packs/Tins Daily: 1 - Caffeine Use Caffeine Use: Reports: None - Alcohol Use Days Per Week of Alcohol Use: 7 Number of Drinks Per Day: 3 Total Drinks Per Week: 21 - Recreational Drug Use Recreational Drug Use: Yes Recreational Drug Type: Reports: Marijuana/Hashish Recreational Drug Use Frequency: Socially ED ROS GENERAL - Review of Systems Review Of Systems: See Below Constitutional: Reports: No Symptoms HEENT: Reports: No Symptoms Respiratory: Reports: No Symptoms Cardiovascular: Reports: No Symptoms GI/Abdominal: Reports: No Symptoms Musculoskeletal: Denies: Neck Pain, Shoulder Pain, Arm Pain, Back Pain, Hand Pain, Foot Pain Skin: Reports: Wound (forehead lac) Neurological: Reports: No Symptoms ED EXAM, SKIN/RASH Exam: See Below Exam Limited By: No Limitations General Appearance: Alert, WD/WN, No Apparent Distress Eye Exam: Bilateral Eye: EOMI, Normal Inspection, PERRL Ears: Normal External Exam, Normal Canal, Hearing Grossly Normal Nose: Normal Inspection, No Blood Throat/Mouth: Normal Inspection, Normal Lips, Normal Oropharynx, Normal Voice, No Airway Compromise Neck: Normal Inspection, Supple, Non-Tender Respiratory/Chest: No Respiratory Distress Extremities: Normal Inspection, Normal Range of Motion, Non-Tender, No Pedal Edema Neurological: Alert, Oriented, CN II-XII Intact, Normal Cognition, No Motor/Sensory Deficits Psychiatric: Normal Affect, Normal Mood Skin: Warm, Dry, Normal Color, No Rash, Wound/Incision (forehead lac) Location, Skin: Face Characteristics: Other (eliptical) Associated features: Tenderness. No: Induration, Lymphangitis ED SKIN PROCEDURES - Laceration/Wound Repair Left Forehead Appearance: Subcutaneous, Other (L shaped) Distal NVT: Neuro & Vascular Intact, No Tendon Injury Anesthetic Type: Local Local Anesthesia - Lidocaine (Xylocaine): 1% with EPI Local Anesthetic Volume: 3cc Skin Prep: Saline Saline Irrigation (cc's): 20 Exploration/Debridement/Repair: Explored to Base Closed with: Sutures Lac/Wound length In cm: 2.3 Suture Size: 6-0 # of Sutures: 6 Suture Type: Prolene, Interrupted, Simple, Mattress Drain Placement: No Sterile Dressing Applied: Nurse Tetanus Status Addressed: Yes Complications: No Departure - Departure Time of Disposition: 02:10 Disposition: Home, Self-Care 01 Condition: Good Clinical Impression: Eyebrow laceration Qualifiers: Encounter type: initial encounter Laterality: left Qualified Code(s): S01.112A - Laceration without foreign body of left eyelid and periocular area, initial encounter - Discharge Information *PRESCRIPTION DRUG MONITORING PROGRAM REVIEWED*: Not Applicable *COPY OF PRESCRIPTION DRUG MONITORING REPORT IN PATIENT ANA: Not Applicable Instructions: Facial Laceration, [id number] Referrals: Renetta Sawyer DO [Primary Care Provider] - Forms: ED Department Discharge Additional Instructions: Clean wound twice daily with 1/2 water and 1/2 peroxide. Dry. Apply Bacitracin and a new dressing. Recheck for signs of infection. Stitches out in 6 days in your doctor's office. Keep the sun off of your wound for the entire summer to reduce scarring.
[2019-10-23] MEDS ORDERED: Bacitracin Oint 1 GM U/D Packet TOP ONE (01:59)
[2019-10-23] MEDS ORDERED: Bacitracin Oint 1 GM U/D Packet ONE (02:01)
== END 2019-10-23 02:09 | disposition home or self-care (01) ==
LOC: JP.ED 00:04
DX: S01.112A Laceration without foreign body of left eyelid and periocular area, initial encounter (principal); I10 Essential (primary) hypertension; K21.9 Gastro-esophageal reflux disease without esophagitis; F17.210 Nicotine dependence, cigarettes, uncomplicated; Z79.899 Other long term (current) drug therapy; Z88.5 Allergy status to narcotic agent; W17.89XA Other fall from one level to another, initial encounter
CPT/HCPCS: 12011; 99282-25

== ENCOUNTER 2020-01-13 14:48 | Emergency (ER) | payer MEDICAID ==
[2020-01-13 15:01] VITALS: BP 119/69
[2020-01-13 15:07] VITALS: PULSE 90
--- NOTE | 2020-01-13 15:27 | EDM.PDOC ---
ED HPI GENERAL MEDICAL PROBLEM - General Chief Complaint: Lower Extremity Injury/Pain Stated Complaint: MEDICAL VIA [facility] Time Seen by Provider: 01/13/20 15:10 Source of Information: Reports: Patient, EMS, RN Notes Reviewed, Significant Other History Limitations: Reports: No Limitations - History of Present Illness INITIAL COMMENTS - FREE TEXT/NARRATIVE: Basil presents today for complaints of his hip giving out on him last night while he was in the garage. He states he crawled to the door, his significant other and son helped him to bed. He reports today he cannot walk and the pain is sharp and stabbing. He states he feels like it is broken. He denies fever, chills, nausea, vomiting, diarrhea, constipation or other concerns. - Related Data Allergies Allergy/AdvReac Type Severity Reaction Status Date / Time No Known Allergies Allergy Verified 01/13/20 15:00 Home Meds: Home Meds Lisinopril 30 mg PO DAILY 11/04/14 [History] traZODone 100 mg PO BEDTIME 10/23/19 [History] Past Medical History - Past Health History Medical/Surgical History: Denies Medical/Surgical History Cardiovascular History: Reports: Hypertension Gastrointestinal History: Reports: GERD, Hemorrhoids Genitourinary History: Reports: None Musculoskeletal History: Reports: Back Pain, Chronic Other Musculoskeletal History: chronic hip pain Neurological History: Reports: Other (See Below) Psychiatric History: Reports: None Hematologic History: Reports: None Immunologic History: Reports: None - Infectious Disease History Infectious Disease History: Reports: Chicken Pox - Past Surgical History Head Surgeries/Procedures: Reports: None Cardiovascular Surgical History: Reports: None GI Surgical History: Reports: Latrice Fundoplication Neurological Surgical History: Reports: Lumbar Spine Musculoskeletal Surgical History: Reports: None, Hip Replacement Other Musculoskeletal Surgeries/Procedures:: L4-L5 DISCECTOMY, CHRONIC R LUMBAR PAIN THTA RADIATES TO R LEG Dermatological Surgical History: Reports: None Social & Family History - Family History Family Medical History: Noncontributory - Tobacco Use Smoking Status *Q: Current Every Day Smoker Years of Tobacco use: 22 Packs/Tins Daily: 1 - Caffeine Use Caffeine Use: Reports: None Review of Systems - Review of Systems Review Of Systems: See Below Constitutional: Reports: No Symptoms Eyes: Reports: No Symptoms Ears: Reports: No Symptoms Nose: Reports: No Symptoms Mouth/Throat: Reports: No Symptoms Respiratory: Reports: No Symptoms Cardiovascular: Reports: No Symptoms Musculoskeletal: Reports: Leg Pain, Other (left leg/femur pain, left hip pain status post fall lastnight) Skin: Reports: Other (abrasion to left nare, left upper lip from fall) Neurological: Reports: No Symptoms, Other (He yan LOC with fall onto concrete garage floor. ) Psychiatric: Reports: No Symptoms ED EXAM, GENERAL - Physical Exam Exam: See Below Free Text/Narrative:: Basil is an alert and oriented 44 year old male with history of avascular necrosis of the left hip, HAYDEE with wire who had a fall last night after his left hip gave out on him. Significant pain after fall continues today with inability to ambulate. Exam Limited By: No Limitations General Appearance: Alert, WD/WN, No Apparent Distress, Other (significant increase of pain with movement of left leg. ) Eye Exam: Bilateral Eye: Normal Inspection, PERRL Nose: Normal Inspection, Normal Mucosa, No Blood Throat/Mouth: Normal Inspection, Normal Lips, Normal Gums, Normal Oropharynx, Normal Voice, No Airway Compromise Head: Atraumatic, Normocephalic Respiratory/Chest: No Respiratory Distress, Lungs Clear, Normal Breath Sounds, No Accessory Muscle Use, Chest Non-Tender. No: Crackles, Rales, Rhonchi, Wheezing Cardiovascular: Normal Peripheral Pulses, Regular Rate, Rhythm, No Edema, No Gallop, No Murmur, No Rub Peripheral Pulses: 2+: Radial (L), Radial (R), Dorsalis Pedis (L), Dorsalis Pedis (R) Back Exam: Normal Inspection, Full Range of Motion. No: CVA Tenderness (R), CVA Tenderness (L) Extremities: No Pedal Edema, Normal Capillary Refill, Limited Range of Motion (to left leg, pain with internal and external rotation). No: Joint Swelling, Mg's Sign, Increased Warmth, Redness Neurological: Alert, Oriented, Normal Cognition, No Motor/Sensory Deficits Psychiatric: Normal Affect, Normal Mood Skin Exam: Warm, Dry, Normal Color, No Rash, Other (Abrasion to left nare, no signs of current infection. Abrasionto left upper lip, no sign of infection ) Lymphatic: No Adenopathy Course - Vital Signs Last Recorded V/S: Last Vital Signs Temp 36.4 C 01/13/20 15:06 Pulse 90 01/13/20 15:06 Resp 14 01/13/20 15:06 BP 119/69 01/13/20 15:06 Pulse Ox 98 01/13/20 15:06 - Orders/Labs/Meds Orders: Active Orders 24 hr Category Date Time Status Hip Min 2V or 3V w Pelvis Lt [CR] Stat Exams 01/13/20 16:27 Taken Meds: Medications Discontinued Medications Generic Name Dose Route Start Last Admin Trade Name Freq PRN Reason Stop Dose Admin Hydromorphone HCl 0.5 mg 01/13/20 16:33 01/13/20 16:39 Dilaudid IVPUSH 01/13/20 16:34 0.5 mg ONETIME ONE Administration Oxycodone/Acetaminophen 1 tab 01/13/20 17:33 01/13/20 17:37 Percocet 325-5 Mg PO 1 tab ONETIME PRN Administration fracture left trochanteric - Radiology Interpretation Free Text/Narrative:: CT reviewed, wet read shows left nondisplaced trochanteric fracture. Per radiologist report of CT without contrast left lower extremity: Left total hip replacement. There is a perioprosthetic fracture associated with the femoral component which is present predominantly laterally though also extends anteriorly, spanning a 10.5cm extent of the femur. 2mm maximal displacement. The fracture does not propagate below the level of the tip of the femoral component. No acte fracture about the acetabular component. [facility]THO [facility] notified, plain films of pelvis and 2 view left hip requested. Patient notified, pain increasing, we will administer additional dilaudid. - Re-Assessments/Exams Free Text/Narrative Re-Assessment/Exam: 01/13/20 17:06 [facility] ORTHO pulmonary function technologist provider reviewed images, patient may go home, non-weight bearing with pain medication. Follow up with Dr. Cameron TuesdayJanuary 14 in [place] at 10am. Patient and his significant other notified. We will provide a walker, urinal and bedpan to assist with care, non-weight bearing. Patient and his significant other in agreement with plan. Advised no use of alcohol with pain medication. Percocet 5/325mg PO prior to discharge administered to patient. Departure - Departure Time of Disposition: 17:12 Disposition: Home, Self-Care 01 Condition: Good Clinical Impression: Closed fracture of lesser trochanter of left femur, History of left hip replacement - Discharge Information *PRESCRIPTION DRUG MONITORING PROGRAM REVIEWED*: Yes *COPY OF PRESCRIPTION DRUG MONITORING REPORT IN PATIENT ANA: No Instructions: Hip Fracture Referrals: PCP,None [Primary Care Provider] - Forms: ED Department Discharge Additional Instructions: You have been evaluated and treated for a left hip fracture. You must be non-weight bearing to the entire left leg. Use the walker/crutches for any transfers or movement. Take percocet 5/325mg by mouth, one tablet every 6 hours for pain if pain is not well controlled. Follow up with Dr. Cameron at [facility] on January 14 at 10am for follow up. Return for any worsening, issues or concerns. Sepsis Event Note (ED) - Evaluation Sepsis Screening Result: No Definite Risk - Focused Exam Vital Signs: Vital Signs Temp Pulse Resp BP Pulse Ox 01/13/20 15:06 36.4 C 90 14 119/69 98 01/13/20 14:59 36.6 C 89 17 119/69 99 - My Orders Last 24 Hours: My Active Orders 01/13/20 16:27 Hip Min 2V or 3V w Pelvis Lt [CR] Stat - Assessment/Plan Last 24 Hours: My Active Orders 01/13/20 16:27 Hip Min 2V or 3V w Pelvis Lt [CR] Stat Assessment:: Closed fracture of lesser trochanter of left femur, History of left hip repl acement Plan: Patient evaluated and treated for a left hip fracture. Must be non-weight bearing to the entire left leg. Use the walker/crutches for any transfers or movement. Take percocet 5/325mg by mouth, one tablet every 6 hours for pain if pain is not well controlled. Follow up with Dr. Cameron at [facility] on January 14 at 10am for follow up. Return for any worsening, issues or concerns.
[2020-01-13] MEDS ORDERED: HYDROmorphone 0.5 MG/0.5 ML Syringe IVPUSH ONE (16:33)
[2020-01-13] MEDS ORDERED: Acetaminophen/oxyCODONE 325-5 MG Tab PO PRN (17:33)
--- NOTE | 2020-01-14 09:49 | CR ---
Hip Min 2V or 3V w Pelvis Lt CLINICAL HISTORY: Left trochanteric fracture FINDINGS: There is a linear fracture in the subtrochanteric region of the left femur adjacent to a total hip arthroplasty. IMPRESSION: Total left hip arthroplasty Linear subtrochanteric fracture
--- NOTE | 2020-01-15 15:57 | CRLCT ---
Final Report: HISTORY: Fall, left hip pain. Prior total hip arthroplasty. TECHNIQUE: Noncontrast CT of the left hip and femur. COMPARISON: MRI 07/03/2018. FINDINGS: Patient is status post left total hip arthroplasty. There is a wire or cable about the proximal femur spanning the intertrochanteric region. There is an acute periprosthetic fracture associated with the femoral component present predominantly laterally but also extending anteriorly. Fracture extends from the level of the lesser trochanter to the proximal shaft. The craniocaudad extent of the fracture is approximately 10.5 cm. The fracture does not extend below the tip of the femoral component. Fracture demonstrates approximately 2 mm of maximal displacement. There is no acute periprosthetic fracture about the acetabular component. No dislocation of the prosthesis. Left superior and inferior pubic rami are intact. The mid to more distal aspect of the left femur is intact. On the contralateral right side, there are mild degenerative changes of the hip. There is suspected avascular necrosis of the right femoral head. IMPRESSION: Left total hip replacement. There is a periprosthetic fracture associated with the femoral component which is present predominantly laterally though also extends anteriorly, spanning a 10.5 cm extent of the femur. 2 mm maximal displacement. The fracture does not propagate below the level of the tip of the femoral component. No acute fracture about the acetabular component. Dictated by Alonso Mendosa MD @ 01/13/2020 4:46:28 PM Please note that all CT scans at this facility use dose modulation, iterative reconstruction, and/or weight-based dosing when appropriate to reduce radiation dose to as low as reasonably achievable. Dictated by: Alonso Mendosa MD @ 01/13/2020 16:46:34 Signed by: Alonso Mendosa MD @01/13/2020 4:46:34 PM (Electronic Signature) MTDD
== END 2020-01-13 17:47 | disposition home or self-care (01) ==
LOC: JP.ED 14:48
DX: S72.125A Nondisplaced fracture of lesser trochanter of left femur, initial encounter for closed fracture (principal); S00.31XA Abrasion of nose, initial encounter; S00.511A Abrasion of lip, initial encounter; Z96.642 Presence of left artificial hip joint; I10 Essential (primary) hypertension; F17.210 Nicotine dependence, cigarettes, uncomplicated; Z79.899 Other long term (current) drug therapy; W19.XXXA Unspecified fall, initial encounter
CPT/HCPCS: 73502; 73700; 76377; 96374; 99284; A9270; J1170

== ENCOUNTER 2020-05-30 06:32 | Day surgery (SDC) | payer MEDICAID ==
[2020-05-30] MEDS ORDERED: Dextrose 5%-Lactated Ringers 1,000 ML IV SCH (07:00)
[2020-05-30] MEDS ORDERED: Glycopyrrolate 0.2 MG/ML 2 ML SDV IVPUSH ONE (07:00)
[2020-05-30] MEDS ORDERED: fentaNYL 100 MCG/2 ML SDV ONE (07:11)
[2020-05-30] MEDS ORDERED: Midazolam 1 MG/ML 2 ML SDV ONE (07:11)
[2020-05-30] MEDS ORDERED: Propofol 200 MG/20 ML SDV ONE (07:11)
[2020-05-30 08:39] VITALS: BP 122/68; PULSE 80
--- NOTE | 2020-06-08 16:42 | OR ---
DATE OF PROCEDURE: 05/30/2020 SURGEON: Campbell Alejandre MD PREOPERATIVE DIAGNOSIS: Globus sensation with laryngopharyngeal dysphagia. POSTOPERATIVE DIAGNOSES: 1. Patchy white exudate, base of tongue, associated with globus sensation. 2. Intact Latrice fundoplication with minimal gross inflammation at esophagogastric junction. 3. Minimal antral gastritis and proximal duodenitis. OPERATIVE PROCEDURE: Upper GI endoscopy with antral biopsies for CLOtest. ANESTHESIA: IV sedation. INDICATION FOR PROCEDURE: A 45-year-old status post Latrice fundoplication, who presents now with several-week history of development of more of a globus sensation with laryngopharyngeal dysphagia, has some mucus-type secretions when coughing and has noticed some white exudative material coming up with coughing as well. Plan is to do upper GI endoscopy with biopsies as indicated. Potential risks including bleeding and perforation were discussed, and the patient wishes to proceed. DETAILS OF PROCEDURE: The patient was taken to the operating room and placed in a left lateral decubitus position. IV sedation was administered, after which the upper GI endoscope was passed orally through the length of the esophagus into the stomach with retroflexion view of the fundus, and thereafter through the pyloric channel to the junction of the 3rd and 4th portions of the duodenum. Findings included an area of plaque-like white patches in the base of the tongue. This was over a fairly diffuse area, mostly suggestive of some fungal growth from that area. There was otherwise no gross anatomic abnormalities identified in the hypopharynx or larynx. As one passed the scope into the esophagus, the proximal and mid esophagus were unremarkable. At the EG junction, the patient had an intact Latrice effect, and there was not significant gross inflammation visible at the area of esophagogastric junction. Within the stomach, there was some patchy redness in the antrum which continued into the duodenal bulb, but without erosions or ulcers. Beyond the duodenal bulb, the findings normalized. At this point, the scope was withdrawn. In the antrum, biopsies were obtained from the antrum and sent for CLOtest for H. pylori. Minimal bleeding from the biopsy sites was seen and the procedure then concluded. At this point, the plan will be to Mycostatin swish and swallow for the next 7 days, and an ENT appointment to rule out there being more serious pathology within the area, around the base of tongue where the white plaque-like material was identified. Campbell Alejandre MD /[id number]
== END 2020-05-30 09:03 | disposition home or self-care (01) ==
LOC: JP.SDS 06:32
PROVIDERS: ATTEND Surgery
DX: K29.90 Gastroduodenitis, unspecified, without bleeding (principal); R13.19 Other dysphagia; I10 Essential (primary) hypertension; F17.210 Nicotine dependence, cigarettes, uncomplicated; K21.9 Gastro-esophageal reflux disease without esophagitis; E66.9 Obesity, unspecified; Z88.5 Allergy status to narcotic agent; Z98.84 Bariatric surgery status; Z68.28 Body mass index [BMI] 28.0-28.9, adult
CPT/HCPCS: 43239; 87081; J2250; J2704; J3010; J3490; J7121

== ENCOUNTER 2021-01-14 18:58 | Emergency (ER) | payer MEDICAID ==
--- NOTE | 2021-01-14 19:29 | EDM.PDOC ---
ED HPI GENERAL MEDICAL PROBLEM - General Chief Complaint: Laceration Stated Complaint: CUT L THUMB Time Seen by Provider: 01/14/21 19:22 Source of Information: Reports: Patient, RN Notes Reviewed History Limitations: Reports: No Limitations - History of Present Illness INITIAL COMMENTS - FREE TEXT/NARRATIVE: Left thumb cut by a piece of glass in the kitchen, no functional complaints - Related Data Allergies Allergy/AdvReac Type Severity Reaction Status Date / Time morphine Allergy Hives Verified 01/14/21 19:13 Home Meds: Home Meds Lisinopril 30 mg PO DAILY 11/04/14 [History] traZODone 100 mg PO BEDTIME 10/23/19 [History] Cyclobenzaprine [Flexeril] 10 mg PO TID 05/28/20 [History] Ibuprofen 800 mg PO Q8H PRN 05/28/20 [History] Past Medical History Cardiovascular History: Reports: Hypertension Gastrointestinal History: Reports: GERD, Hemorrhoids Genitourinary History: Reports: None Musculoskeletal History: Reports: Back Pain, Chronic Other Musculoskeletal History: chronic hip pain Neurological History: Reports: Other (See Below) Psychiatric History: Reports: None Hematologic History: Reports: None Immunologic History: Reports: None - Infectious Disease History Infectious Disease History: Reports: Chicken Pox - Past Surgical History Head Surgeries/Procedures: Reports: None HEENT Surgical History: Reports: Oral Surgery Cardiovascular Surgical History: Reports: None Respiratory Surgical History: Reports: None GI Surgical History: Reports: EGD, Latrice Fundoplication Endocrine Surgical History: Reports: None Neurological Surgical History: Reports: Lumbar Spine Musculoskeletal Surgical History: Reports: None, Hip Replacement Other Musculoskeletal Surgeries/Procedures:: L4-L5 DISCECTOMY, CHRONIC R LUMBAR PAIN THTA RADIATES TO R LEG Oncologic Surgical History: Reports: None Dermatological Surgical History: Reports: None Social & Family History - Family History Family Medical History: No Pertinent Family History - Tobacco Use Tobacco Use Status *Q: Current Every Day Tobacco User Years of Tobacco use: 30 Packs/Tins Daily: 1 - Caffeine Use Caffeine Use: Reports: None - Alcohol Use Number of Drinks Per Day: 4 Date of Last Drink: 01/14/21 Time of Last Drink: 17:00 - Recreational Drug Use Recreational Drug Use: No ED ROS GENERAL - Review of Systems Review Of Systems: See Below Skin: Reports: Wound ED EXAM, SKIN/RASH Exam: See Below Text/Narrative:: Examination of the left thumb full range of motion he does have a laceration it is approximately 1 cm long to be half centimeter wide, this is a partial skin avulsion there is a flap there the wound has a layer of skin but the skin is already started to devascularized there is no color to the skin elected to just glue it and Steri-Stripped rather than repair Exam Limited By: No Limitations General Appearance: Alert, WD/WN, No Apparent Distress Course - Vital Signs Last Recorded V/S: Last Vital Signs Temp 97.8 F 01/14/21 19:14 Pulse 98 01/14/21 19:14 Resp 18 01/14/21 19:14 BP 130/94 H 01/14/21 19:14 Pulse Ox 95 01/14/21 19:14 Departure - Departure Time of Disposition: 19:33 Disposition: Home, Self-Care 01 Condition: Fair Clinical Impression: Laceration of left thumb Qualifiers: Encounter type: initial encounter Damage to nail status: without damage Foreign body presence: without foreign body Qualified Code(s): S61.012A - Laceration without foreign body of left thumb without damage to nail, initial encounter - Discharge Information Instructions: Laceration Care, Adult Referrals: Renetta Sawyer DO [Primary Care Provider] - Forms: ED Department Discharge Additional Instructions: Let the Steri-Strips fall off, follow-up with primary care as needed call or return to the emergency department worsening of symptoms Sepsis Event Note (ED) - Evaluation Sepsis Screening Result: No Definite Risk - Focused Exam Vital Signs: Vital Signs Temp Pulse Resp BP Pulse Ox 01/14/21 19:14 97.8 F 98 18 130/94 H 95 - Assessment/Plan Plan: Assessment Acuity = acute Site and laterality = 1 cm laceration thumb left Etiology = trauma with glass Manifestations = none Location of injury = Home Lab values = none Plan Follow wound care instruction sheet, follow-up primary care as needed, he declines tetanus This note was dictated using [employer] voice recognition software please call with any questions on syntax or grammar.
[2021-01-14 19:31] VITALS: BP 130/94; PULSE 98
== END 2021-01-14 19:43 | disposition home or self-care (01) ==
LOC: JP.ED 18:58
DX: S61.012A Laceration without foreign body of left thumb without damage to nail, initial encounter (principal); I10 Essential (primary) hypertension; Z88.5 Allergy status to narcotic agent; Z72.0 Tobacco use; Z79.899 Other long term (current) drug therapy; W26.0XXA Contact with knife, initial encounter; Y92.000 Kitchen of unspecified non-institutional (private) residence as the place of occurrence of the external cause
CPT/HCPCS: 99282